=== PATIENT | male | born 1960 | race Caucasian/White ===

== ENCOUNTER 2020-01-15 12:47 | Outpatient (CLI) | payer OTHER ==
--- NOTE | 2020-01-15 13:26 | RAD ---
Cervical spine 5 views: 01/15/2020 COMPARISON: None HISTORY:: Recent fall, pain FINDINGS: The lateral examination demonstrates mild disc space narrowing and anterior osteophyte form ation at the C5-6 and C6-7 level. No significant anterolisthesis or retrolisthesis is appreciated. Open-mouth odontoid view demonstrates a normal-appearing dens and C1-2 articulation. On the basis of facet and uncovertebral osteophyte formation there is mild right-sided neural foramin al stenosis at C3-4, C4-5, and C5-6. Facet and uncovertebral osteophyte formation leads to mild left neural foraminal stenosis at C3-4 and C5-6 as well as to moderate/severe neural foraminal stenos is at C6-7. No prevertebral soft tissue swelling. IMPRESSION: Multilevel cervical spine degenerative change as detailed above, most prominent at C6-7, left greater than right.
== END 2020-01-15 12:48 | disposition home or self-care (01) ==
LOC: MADRAD 12:47
PROVIDERS: ATTEND Family Medicine
DX: M54.2 Cervicalgia (principal); M47.812 Spondylosis without myelopathy or radiculopathy, cervical region; W19.XXXD Unspecified fall, subsequent encounter
CPT/HCPCS: 72050

== ENCOUNTER 2020-11-16 14:00 | Emergency (ER) | payer OTHER ==
[2020-11-16] MEDS ORDERED: Ondansetron PF 4 MG/2 ML Vial ONE (14:28)
[2020-11-16] MEDS ORDERED: Ketorolac Tromethamine 30 MG/ML VIAL ONE (14:28)
[2020-11-16 14:47] LABS: #Lymphocytes 0.4 thou/uL (1.20-3.40); #Monocytes 0.2 thou/uL (0.11-0.59); #Neutrophils 6.6 thou/uL (1.40-6.50); %Basophils 0.1 % (0.0-1.0); %Eosinophils 0.1 % (0.0-10.0); %Lymphocytes 5.4 % (21.0-51.0); %Monocytes 2.6 % (0.0-10.0); %Neutrophils 91.8 % (42.0-75.0); Hemoglobin 16.9 g/dL (14.0-18.0); Mean Corpuscular Hemoglobin 27.8 pg (27.0-31.0); Mean Corpuscular Volume 87.1 fL (78.0-98.0); Mean Platelet Volume 8.7 fL (7.4-10.4); Platelet Count 193 thou/uL (130-400); RBC Distribution Width 13.5 % (11.5-14.5); Red Blood Cell (RBC) Count 6.07 mill/uL (4.70-6.10); White Blood Cell (WBC) Count 7.1 thou/uL (4.8-10.8)
[2020-11-16] MEDS ORDERED: Sodium Chloride 0.9% 1,000 ML ONE (14:54)
[2020-11-16 14:58] LABS: Anion Gap 13 mmol/L (10-20); BUN (Urea Nitrogen) 18 mg/dL (8.4-25.7); Calc. Creatinine Clearance 0 mL/min (70-130); Calcium 10.3 mg/dL (7.8-10.44); Carbon Dioxide 25 mmol/L (23-31); Chloride 108 mmol/L (98-107); Glucose 141 mg/dL (80-115); Potassium 4.4 mmol/L (3.5-5.1); Sodium 142 mmol/L (136-145)
[2020-11-16 15:09] LABS: Bilirubin Small (Negative); Blood, Urine Large (Negative); Clarity Cloudy (Clear); Glucose, Urine (Dipstick) Negative (Negative); Ketone, Urine Trace mg/dL (Negative); Leukocyte Negative (Negative); Nitrite Negative (Negative); Protein, Urine (Dipstick) > or equal to 300 mg/dL (Neg-Trace); Urobilinogen 0.2 mg/dL (Less than 2); pH, Urine 5.5 (5.0-9.0)
[2020-11-16 15:15] LABS: Specific Gravity, Urine 1.025 (1.002-1.036)
[2020-11-16 15:16] LABS: Bacteria/HPF 3+ HPF (None Seen); RBC/HPF Greater than 50 HPF (0-3); WBC/HPF 0-3 HPF (0-3)
[2020-11-16] MEDS ORDERED: Morphine 10 MG/ML VIAL ONE (15:57)
[2020-11-16] MEDS ORDERED: diphenhydrAMINE 50 MG/ML VIAL ONE (15:58)
[2020-11-16] MEDS ORDERED: Tamsulosin HCl 0.4 MG CAP ONE (16:44)
== END 2020-11-16 16:50 | disposition home or self-care (01) ==
LOC: MADERS 14:00
DX: N13.2 Hydronephrosis with renal and ureteral calculous obstruction (principal); E78.5 Hyperlipidemia, unspecified; Z79.899 Other long term (current) drug therapy; Z87.442 Personal history of urinary calculi
CPT/HCPCS: 74176; 80048; 81003; 81015; 85025; 96374; 96375; J1200; J1885; J2270; J2405; J7050